=== PATIENT | male | born 2005 | race Caucasian/White ===

== ENCOUNTER 2024-02-20 10:02 | Day surgery (SDC) | payer BC ==
[2024-02-19 09:21] VITALS: BMI 26.4
[2024-02-20] MEDS ORDERED: fentaNYL 50 mcg/mL 1 mL Vial ONE (10:33)
[2024-02-20] MEDS ORDERED: Ropivacaine 0.5% HCl/PF (150 MG/30 ML VIAL) ONE (10:33)
[2024-02-20] MEDS ORDERED: Midazolam HCl 2 mg/2 ml Vial ONE (10:33)
[2024-02-20] MEDS ORDERED: Dexmedetomidine 200 MCG/2 ML VIAL ONE ×2 (10:41→12:51)
[2024-02-20] MEDS ORDERED: Sodium Chloride 0.9% 100 ML ONE (10:42)
[2024-02-20] MEDS ORDERED: CEFAZOLIN 2 GM VIAL ONE (10:42)
[2024-02-20 10:44] LABS: #Eosinphils 0.1 thou/uL (0.0-0.7); #Monocytes 0.6 thou/uL (0.11-0.59); %Basophils 0.2 % (0.0-1.0); %Eosinophils 0.9 % (0.0-10.0); %Monocytes 11.4 % (0.0-10.0); %Neutrophils 54.3 % (42.0-75.0); Hematocrit 47.7 % (42.0-52.0); Hemoglobin 16.3 g/dL (14.0-18.0); Mean Corpuscular HGB CONC 34.2 g/dL (32.0-36.0); Mean Corpuscular Hemoglobin 31.2 pg (27.0-31.0); Mean Corpuscular Volume 91.4 fl (78.0-98.0); Mean Platelet Volume 10.2 fL (7.4-10.4); Platelet Count 188 10x3/uL (130-400); RBC Distribution Width 11.5 % (11.5-14.5); Red Blood Cell (RBC) Count 5.22 mill/uL (4.70-6.10); White Blood Cell (WBC) Count 5.4 10x3/uL (4.8-10.8)
[2024-02-20] MEDS ORDERED: PROPOFOL 20 ML ONE ×2 (11:04→11:37)
[2024-02-20] MEDS ORDERED: fentaNYL PF 100 MCG/2 ML SYRINGE ONE (11:04)
[2024-02-20] MEDS ORDERED: PHENYLEPHRINE-NS 100 MCG/ML 10 ML SYRINGE ONE (11:19)
[2024-02-20] MEDS ORDERED: Glycopyrrolate 0.2 MG/ML 5 ML SYRINGE ONE (11:19)
[2024-02-20] MEDS ORDERED: Dexamethasone 20 MG/5 ML VIAL ONE (11:38)
[2024-02-20] MEDS ORDERED: Ondansetron PF 4 MG/2 ML Vial ONE (11:38)
[2024-02-20] MEDS ORDERED: HYDROcodone/Acetaminophen 5/325 mg Tablet ONE (14:40)
== END 2024-02-20 16:00 | disposition home or self-care (01) ==
LOC: SDC 10:02
PROVIDERS: ATTEND Orthopaedic Surgery
PROC: 0MRN47Z Replacement of Right Knee Bursa and Ligament with Autologous Tissue Substitute, Percutaneous Endoscopic Approach (ICD-10-PCS; principal; 2024-02-20)
DX: S83.511A Sprain of anterior cruciate ligament of right knee, initial encounter (principal); F17.200 Nicotine dependence, unspecified, uncomplicated; X58.XXXA Exposure to other specified factors, initial encounter
CPT/HCPCS: 85025; C1713; J1100; J2250; J2405; J2704; J2795; J3010; J3490